=== PATIENT | female | born 1950 | race Caucasian/White ===

== ENCOUNTER 2017-08-24 09:09 | Day surgery (SDC) | payer OTHER ==
[~2017-08-24 09:09] MED LIST: Buffered Lidocaine 0.9% SYRIN* 5 ML/SYR SYRINGE INTRADERM ONE
[2017-08-24] MEDS ORDERED: Clindamycin 900 MG IVPREMIX(* 900 MG/50 ML SDV IV ONE (09:25)
[2017-08-24] MEDS ORDERED: fentaNYL* 50 MCG/ML 2 ML VIAL (100 MCG VIAL) ONE (10:17)
[2017-08-24] MEDS ORDERED: Midazolam* 1 MG/ML 2 ML VIAL (2 MG) ONE (10:17)
[2017-08-24] MEDS ORDERED: Bupivacaine 0.5% SDV PF* 30ML VIAL ONE (10:35)
[2017-08-24] MEDS ORDERED: Propofol* 10 MG/ML 20 ML BTL IV PUSH ONE (10:36)
[2017-08-24] MEDS ORDERED: Lidocaine 2% PF * 5 ML VIAL ONE (10:37)
[2017-08-24] MEDS ORDERED: ceFAZolin 2 GM PREMIX (*) 2 GM/50 ML BAG IVPB ONE (10:56)
[2017-08-24] MEDS ORDERED: Ondansetron INJ* 2 MG/ML VIAL IV PRN (11:34)
[2017-08-24] MEDS ORDERED: Naloxone* 0.4 MG/ML 1 ML VIAL IV PRN (11:34)
[2017-08-24] MEDS ORDERED: Ketorolac INJ* 30 MG/ML 1 ML VIAL IV PRN (11:34)
[2017-08-24 11:42] VITALS: BP 116/76
--- NOTE | 2017-08-24 12:00 | OP ---
Operative Report - Blank - Operative Report Date of Operation: 08/24/17 Note: PATIENT: Valerie Shen DATE OF : 1950 DATE OF SURGERY: 08/24/2017 SURGEON: Patrice Macias MD LUMBER SCALER: BRENDAN Andrade, whos assistance was necessary for positioning, retraction, help with instrumentation, and closure. ANESTHESIOLOGIST: Dr. Vega PREOPERATIVE DIAGNOSIS: Right foot third toe ganglion cyst POSTOPERATIVE DIAGNOSIS: Right foot third toe ganglion cyst OPERATION: Right foot third toe ganglion cyst excision ANESTHESIA: MAC with local anesthesia provided by surgeon IMPLANTS: none TOURNIQUET TIME: Less than 30 minutes with an ankle Esmarch tourniquet SPECIMENS: ganglion cyst to pathology ESTIMATED BLOOD LOSS: minimal COMPLICATIONS: none STATUS: Stable from the operating room to the recovery room and then home. INDICATIONS FOR PROCEDURE: Valerie has had the bothersome ganglion on her third toe for 10 years. Both operative and non operative treatment alternatives were reviewed. Further, the nature and risks of surgery were reviewed in careful detail, in the office as well as the pre-operative holding area. Our discussions regarding the risks of surgery included, but were not limited to, infection, wound problems, nerve injury, neuroma, RSD, persistent symptoms, blood clot, recurrence, nail deformity or nail loss, failure of the surgery, and even the remote chance of catastrophic complication, including loss of limb. DESCRIPTION OF PROCEDURE: The patient was seen in the preoperative holding unit and informed written consent was obtained. The appropriate extremity was marked. The patient was then brought to the operating room and carefully positioned on the operating room table. Anesthesia was induced. All bony prominences were padded with great care. A chlorhexidine based pre-scrub was performed followed by a chloraprep prep and drape in standard sterile fashion. A surgical safety pause was then conducted in which we confirmed the appropriate patient, extremity, planned procedure, availability of equipment, indication and administration of prophylactic antibiotics, and DVT prophylaxis in the form of a compression boot on the non-surgical extremity. We began with Esmarch exsanguination of the limb and placement of an ankle Esmarch tourniquet. An incision was made over the cyst and then careful blunt dissection was made to get down to the deep layer overlying the cyst. Blunt dissection was then utilized to define the cyst. I was careful to avoid the nail matrix during dissection. The cyst was then amputated at its stalk excised. No bony prominences were palpated at the joint which would be amenable to saucerization. The tourniquet was then let down and hemostasis achieved. The toe was pink, well-perfused and with excellent capillary refill. At this point, we irrigated copiously and then closed meticulously utilizing 3-0 nylon for the skin. A sterile dressing was then applied. The patient was then awakened from anesthesia and transferred to the recovery room in stable condition. There were no complications. All needle and sponge counts were correct at the end of the case. ATTESTATION: I attest I was present and scrubbed and performed the critical portions of the procedure myself. POSTOPERATIVE PLAN: She will follow-up in 2 weeks for likely suture removal.
== END 2017-08-24 12:06 | disposition home or self-care (01) ==
LOC: OR 09:09
PROVIDERS: ATTEND Orthopaedic Surgery
DX: M67.471 Ganglion, right ankle and foot (principal); E03.9 Hypothyroidism, unspecified; K21.9 Gastro-esophageal reflux disease without esophagitis; E78.5 Hyperlipidemia, unspecified; J45.909 Unspecified asthma, uncomplicated; I34.1 Nonrheumatic mitral (valve) prolapse; I49.3 Ventricular premature depolarization; E78.89 Other lipoprotein metabolism disorders; M19.90 Unspecified osteoarthritis, unspecified site
CPT/HCPCS: 88304; J0690; J2250; J2704; J3010